=== PATIENT | male | born 2000 | race Caucasian/White ===

== ENCOUNTER 2022-10-13 11:11 | Emergency (ER) | payer OTHER, SELFPAY ==
--- NOTE | ~2022-10-13 | XR_ITS ---
EXAMINATION: XR ANKLE, LEFT CLINICAL INFORMATION: Pain and swelling after fall COMPARISON: None TECHNIQUE: AP, lateral, and mortise views of the left ankle. FINDINGS: There is a large amount soft tissue swelling seen overlying the lateral malleolus. No acute fracture or dislocation is seen. Ankle mortise appears intact. XR/XR ankle LT min 3V IMPRESSION: Soft tissue swelling of bilateral ankle without underlying bony abnormality appreciated.
[2022-10-13 12:05] VITALS: BP 108/61; PULSE 74; RESP 16; TEMP 36.4; O2SAT 97; BMI 25.1
--- NOTE | 2022-10-13 12:05 | ED.LOWEXIN ---
HPI - Extremity Injury (Lower) General Chief Complaint: Extremity Injury, Lower <Yadira Guo CNP - Last Filed: 10/13/22 12:08> Stated Complaint: l ankle swollen pain <Yadira Guo CNP - Last Filed: 10/13/22 12:08> Time Seen by Provider: 10/13/22 14:12 <Yadira Guo CNP - Last Filed: 10/13/22 12:08> Source: patient <KYLER Ochoa - Last Filed: 10/13/22 15:23> Mode of arrival: ambulatory <KYLER Ochoa Last Filed: 10/13/22 15:23> Limitations: no limitations <KYLER Ochoa Last Filed: 10/13/22 15:23> History of Present Illness HPI Narrative: 22 yo male presents to the ER for evaluation of left ankle swelling and bruising after an injury yesterday. He was seen at Urgent Care yesterday when the injury happened and he was diagnosed with ankle sprain however no x-rays were performed. Patient has been ambulatory with well managed pain. He reports at the time of the injury was running in his work boots when he inverted the foot and felt that the foot was ?out of place and popped back in. ? He has had minimal pain but today he woke up with increased swelling and bruising. He reports the bruising has extended down to his toes and down to his heel. He has no pain at his heels or toes. He is worried about the swelling and bruising. <KYLER Ochoa - Last Filed: 10/13/22 15:23> MD complaint: ankle injury <KYLER Ochoa Last Filed: 10/13/22 15:23> Onset (ago): day(s) (1) <KYLER Ochoa Last Filed: 10/13/22 15:23> Injury: Left: ankle and toes <KYLER Ochoa Last Filed: 10/13/22 15:23> Type of Injury: inversion <KYLER Ochoa Last Filed: 10/13/22 15:23> Place: street/outdoors <KYLER Ochoa Last Filed: 10/13/22 15:23> Severity: mild <KYLER Ochoa - Last Filed: 10/13/22 15:23> Severity scale (1-10): 3 <KYLER Ochoa - Last Filed: 10/13/22 15:23> Relieving factors: NSAID, immobilization and rest <KYLER Ochoa - Last Filed: 10/13/22 15:23> Exacerbating factors: weight bearing <KYLER Ochoa - Last Filed: 10/13/22 15:23> Context: fall and running <KYLER Ochoa - Last Filed: 10/13/22 15:23> Associated symptoms: swelling and ambulatory <KYLER Ochoa - Last Filed: 10/13/22 15:23> Other symptoms: none <KYLER Ochoa - Last Filed: 10/13/22 15:23> Related Data Allergies/Adverse Reactions: Allergies Allergy/AdvReac Type Severity Reaction Status Date / Time No Known Allergies Allergy Verified 10/13/22 12:08 <Yadira Guo CNP - Last Filed: 10/13/22 12:08> Review of Systems Review of Systems: Yes all other systems are reviewed and are negative <KYLER Ochoa - Last Filed: 10/13/22 15:23> PMFSH Social History Social History: Social History Advance Directives: No Advance Directives Information Provided: No <Yadira Guo CNP - Last Filed: 10/13/22 12:08> Physical Exam Vital Signs: Vital Signs: Last Vital Signs Temp 97.5 F 10/13/22 12:05 Pulse 74 10/13/22 12:05 Resp 16 10/13/22 12:05 BP 108/61 10/13/22 12:05 Pulse Ox 97 10/13/22 12:05 O2 Del Method 10/13/22 12:05 BMI result Body Mass Index 25.1 <Yadira Guo CNP - Last Filed: 10/13/22 12:08> Vital Signs: Last Vital Signs Temp 97.5 F 10/13/22 12:05 Pulse 74 10/13/22 12:05 Resp 16 10/13/22 12:05 BP 108/61 10/13/22 12:05 Pulse Ox 97 10/13/22 12:05 O2 Del Method 10/13/22 12:05 BMI result Body Mass Index 25.1 <KYLER Ochoa - Last Filed: 10/13/22 15:23> Appearance: Alert. Oriented X3. No acute distress. HEENT: normal inspection CVS: Normal heart rate and rhythm. Pulses normal. Respiratory: No respiratory distress. Skin: Skin warm and dry. Normal skin color. Normal skin turgor. No rashes. Extremities: left distal lateral leg, lateral ankle with scattered areas of ecchymosis, moderate generalized swelling of the lateral ankle and medial ankle. ecchymosis on the top of the foot at the proximal toes. Neuro: Oriented X 3. No motor deficit. No sensory deficit. Steady gait <KYLER Ochoa - Last Filed: 10/13/22 15:23> Course Course Course Narrative: This is an RME: Additional HPI, ROS, PE not included below will be deferred to primary provider. Patient is a 22-year-old male who presents to emergency department for evaluation of traumatic left ankle pain and swelling. He reports 2 days ago he popped with L ankle out of place and upon standing up it popped back in , was seen at urgent care, diagnosed with a sprain, did not have XR imaging, now having worsening bruising, numbness to foot and pain with weightbearing. 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 Seen by doctor at his school, referred to ED for XR imaging. Plan: XR left ankle <Yadira Guo CNP - Last Filed: 10/13/22 12:08> Reevaluation(s) Reevaluation #1: XR normal. Steady gait. Counseled on ecchymosis and healing process. Placed in CHERYL for compression and support. Stable for d/c home. <KYLER Ochoa - Last Filed: 10/13/22 15:23> Medical Decision Making Differential Diagnosis Differential Diagnoses: The differential diagnosis associated with the presentation includes <KYLER Ochoa Last Filed: 10/13/22 15:23> ankle sprain, torn ligament, tibia fracture, metatarsal fracture <KYLER Ochoa Last Filed: 10/13/22 15:23> Independent Interpretation I performed an independent interpretation of an: Plain X-Ray <KYLER Ochoa - Last Filed: 10/13/22 15:23> Interpretation: ankle bones with normal alignement, no acute fractures, soft tissue swelling noted <KYLER Ochoa - Last Filed: 10/13/22 15:23> Radiology Impression Discussion of test interpretation with radiology: I have reviewed the radiologist's reading. <KYLER Ochoa - Last Filed: 10/13/22 15:23> Radiologist Impression: XR/XR ankle LT min 3V IMPRESSION: Soft tissue swelling of bilateral ankle without underlying bony abnormality appreciated. <KYLER Ochoa - Last Filed: 10/13/22 15:23> Prescription Management I considered prescription management with: Pain Medication <KYLER Ochoa - Last Filed: 10/13/22 15:23> nsaids and tylenol <KYLER Ochoa - Last Filed: 10/13/22 15:23> Critical Care Time Critical Care Time Critical Care Time: No <KYLER Ochoa - Last Filed: 10/13/22 15:23> Discharge Plan Discharge Clinical Impression: Ankle sprain and strain <Yadira Guo CNP - Last Filed: 10/13/22 12:08> Patient Disposition: Home, Self-Care <Yadira Guo CNP - Last Filed: 10/13/22 12:08> Instructions: Ankle Sprain (ED) <Yadira Guo CNP - Last Filed: 10/13/22 12:08> Additional Instructions: Your x-ray today showed no acute fractures. Rest your ankle and elevate your foot when possible. Recommend CHERYL wrap for support and compression. Use ice several times per day for the next 48 hours. You may bear weight as tolerated. Take Motrin and/or Tylenol as needed for pain. Follow up with your doctor as needed. <Yadira Guo CNP - Last Filed: 10/13/22 12:08> Interventions: ED Discharge Assessment Last Done: 10/13/22 14:34 <Yadira Guo CNP - Last Filed: 10/13/22 12:08> Discharge Date/Time: 10/13/22 14:35 <Yadira Guo, OFFICE COMMUNICATION PROFESSOR - Last Filed: 10/13/22 12:08>
== END 2022-10-13 14:35 | disposition home or self-care (01) ==
LOC: HO.ED 14:29
PROVIDERS: Emergency Provider Emergency Medicine
DX: S93.402A Sprain of unspecified ligament of left ankle, initial encounter (principal); S96.912A Strain of unspecified muscle and tendon at ankle and foot level, left foot, initial encounter; X50.1XXA Overexertion from prolonged static or awkward postures, initial encounter; Y93.02 Activity, running; Y92.414 Local residential or business street as the place of occurrence of the external cause; Y99.9 Unspecified external cause status
CPT/HCPCS: 73610; 99283; 99284